=== PATIENT | female | born 1945 | race Caucasian/White ===

== ENCOUNTER 2021-08-09 11:46 | Emergency (ER) | payer OTHER, MEDICARE ==
[~2021-08-09] VITALS: Ht 149.9 cm; Wt 81.7 kg
[2021-08-09] MEDS ORDERED: HYDROCODONE-AC1 EA10 PO (12:05)
== END 2021-08-09 12:25 | disposition home or self-care (01) ==
LOC: ER 11:46
DX: S70.12XA Contusion of left thigh, initial encounter (principal); W22.8XXA Striking against or struck by other objects, initial encounter
CPT/HCPCS: 99283

== ENCOUNTER 2023-05-05 10:35 | Day surgery (SDC) | payer MEDICARE ==
[~2023-05-05] VITALS: Ht 149.9 cm; Wt 77.7 kg
[~2023-05-05 10:35] MED LIST: HYDROCODONE-AC1 EA10 PO
[2023-05-05] MEDS ORDERED: NADO20 (11:09)
[2023-05-05] MEDS ORDERED: METF500 (11:09)
[2023-05-05] MEDS ORDERED: Lovastatin20 MG (11:09)
[2023-05-05] MEDS ORDERED: ASPI81CH (11:10)
[2023-05-05 13:04] VITALS: BP 107/60
== END 2023-05-05 12:35 | disposition home or self-care (01) ==
LOC: ORSCSDS 10:35
PROVIDERS: Specialist
PROC: 0DJ08ZZ Inspection of Upper Intestinal Tract, Via Natural or Artificial Opening Endoscopic (ICD-10-PCS; principal; 2023-05-05 12:00)
DX: K74.60 Unspecified cirrhosis of liver (principal); K75.81 Nonalcoholic steatohepatitis (NASH); I85.00 Esophageal varices without bleeding; K76.6 Portal hypertension; K31.89 Other diseases of stomach and duodenum; I10 Essential (primary) hypertension; E78.5 Hyperlipidemia, unspecified; F32.A Depression, unspecified; E11.9 Type 2 diabetes mellitus without complications; E66.9 Obesity, unspecified; Z68.34 Body mass index [BMI] 34.0-34.9, adult; Z79.82 Long term (current) use of aspirin; Z79.899 Other long term (current) drug therapy
CPT/HCPCS: 82947; J2001; J2704; J7120

== ENCOUNTER → 2023-07-31 | Outpatient (CLI) | payer MEDICARE ==
[~2023-07-31] MED LIST changes: +ASPI81CH; +Lovastatin20 MG; +METF500; +NADO20
[2023-08-11 21:41] LABS: Alanine Aminotransfer (ALT/SGP 25 U/L (12-78); Albumin, Blood 3.5 g/dL (3.4-5.0); Albumin/Globulin Ratio 1.2 (0.8-1.8); Alk Phos 197 U/L (50-136); Anion Gap 8 mmol/L (6-16); Aspartate Aminotrans (AST/SGOT 24 U/L (12-37); Bilirubin, Total 0.4 mg/dL (0.1-1.0); Blood Urea Nitrogen 29 mg/dL (8-24); Bun/Creatinine Ratio 22.1 (12.0-20.0); CO2, Blood 24 mmol/L (21-32); Chloride, Blood 109 mmol/L (98-108); Creatinine, Blood 1.31 mg/dL (0.40-1.00); Globulin, Blood 2.9 g/dL (2.2-4.0); Glomerular Filtration Rate 41 (60-); Glucose, Blood 192 mg/dL (70-99); Phosphorus, Blood 3.6 mg/dL (2.5-4.9); Potassium, Blood 5.1 mmol/L (3.5-5.5); Sodium, Blood 141 mmol/L (136-145); Total Protein, Blood 6.4 g/dL (6.4-8.2)
== END ==
LOC: LAB SHORT 16:28 → LAB 16:28
PROVIDERS: Internal Medicine Hematology & Oncology
DX: D61.818 Other pancytopenia (principal)
CPT/HCPCS: 80053; 84100

== ENCOUNTER → 2023-08-14 | Outpatient (CLI) | payer MEDICARE ==
[2023-08-15 09:11] LABS: A/G RATIO 1.5 (1.2-2.2); ALKALINE PHOSPHATASE, S 223 IU/L (44-121); ALT (SGPT) 20 IU/L (0-32); AST (SGOT) 27 IU/L (0-40); BILIRUBIN, TOTAL 0.3 mg/dL (0.0-1.2); BUN 26 mg/dL (8-27); BUN/CREATININE RATIO 22 (12-28); CALCIUM, SERUM 8.9 mg/dL (8.7-10.3); CARBON DIOXIDE, TOTAL 24 mmol/L (20-29); CHLORIDE, SERUM 103 mmol/L (96-106); CREATININE, SERUM 1.19 mg/dL (0.57-1.00); GLOBULIN, TOTAL 2.4 g/dL (1.5-4.5); GLUCOSE, SERUM 307 mg/dL (70-99); PHOSPHORUS, SERUM 3.7 mg/dL (3.0-4.3); POTASSIUM, SERUM 4.9 mmol/L (3.5-5.2); SODIUM, SERUM 138 mmol/L (134-144)
== END | disposition home or self-care (01) ==
LOC: LAB 13:12 → LAB SHORT 13:12
PROVIDERS: Internal Medicine Hematology & Oncology
DX: D61.818 Other pancytopenia (principal); E53.8 Deficiency of other specified B group vitamins
CPT/HCPCS: 80053; 80069; 82607; 82746; 84100

== ENCOUNTER → 2024-05-16 | Outpatient (CLI) | payer MEDICARE ==
[~2024-05-16] MED LIST changes: +ONDA4ODT MM
[2024-05-16 19:01] LABS: BASOPHILS ABSOLUTE AUTO 0.02 K/mm3 (0.00-0.23); BASOPHILS PERCENT AUTO 1 % (0-2); EOSINOPHILS ABSOLUTE AUTO 0.09 K/mm3 (0.00-0.68); EOSINOPHILS PERCENT AUTO 4 % (0-6); Hematocrit 34.6 % (33.0-51.0); Hemoglobin 11.4 g/dL (11.5-16.0); IMMATURE GRAN ABSOLUTE AUTO 0.01 K/mm3 (0.00-0.10); IMMATURE GRAN PERCENT AUTO 0 % (0-1); LYMPHOCYTES ABSOLUTE AUTO 0.61 K/mm3 (0.84-5.20); LYMPHOCYTES PERCENT AUTO 25 % (21-46); MONOCYTES PERCENT AUTO 8 % (4-13); Mean Corpuscular HGB 31.2 pg (26.0-34.0); Mean Corpuscular HGB Conc 32.9 g/dL (31.5-36.5); Mean Corpuscular Volume 95 fL (80-100); Mean Platelet Volume 12.8 fL (9.1-12.4); NEUTROPHILS ABSOLUTE AUTO 1.55 K/mm3 (1.96-9.15); NEUTROPHILS PERCENT AUTO 63 % (41-73); Platelet Count 73 K/mm3 (150-400); RDW Coefficient Variation 13.2 % (11.7-14.2); RDW Standard Deviation 46.1 fL (35.1-46.3); Red Blood Cell Count 3.65 M/mm3 (3.80-5.20); White Blood Cell Count 2.48 K/mm3 (4.00-11.30)
[2024-05-16 21:04] LABS: Alanine Aminotransfer (ALT/SGP 23 U/L (12-78); Albumin, Blood 3.5 g/dL (3.4-5.0); Alk Phos 217 U/L (50-136); Anion Gap 10 mmol/L (3-11); Aspartate Aminotrans (AST/SGOT 29 U/L (12-37); Bilirubin, Total 0.6 mg/dL (0.1-1.0); Blood Urea Nitrogen 25 mg/dL (8-24); Bun/Creatinine Ratio 18.9 (12.0-20.0); CHOL/HDL RATIO 1.7; CO2, Blood 26 mmol/L (21-32); Calcium, Blood 9.2 mg/dL (8.5-10.1); Chloride, Blood 106 mmol/L (98-108); Cholesterol 107 mg/dL (50-200); Creatinine, Blood 1.32 mg/dL (0.40-1.00); Globulin, Blood 3.5 g/dL (2.2-4.0); Glomerular Filtration Rate 41 (60-); Glucose, Blood 120 mg/dL (70-99); HDL Cholesterol 62 mg/dL (>39); LDL/HDL RATIO 0.4; Low Density Lipoprotein Chol 25 mg/dL (0-110); Potassium, Blood 4.8 mmol/L (3.5-5.5); Sodium, Blood 137 mmol/L (136-145); Triglycerides 100 mg/dL (30-160); Very Low Density Lipoprot Chol 20 mg/dL (6-32)
== END ==
LOC: LAB SHORT 17:35 → LAB 17:35
PROVIDERS: Family Medicine
DX: E11.9 Type 2 diabetes mellitus without complications (principal); E78.2 Mixed hyperlipidemia; I50.32 Chronic diastolic (congestive) heart failure
CPT/HCPCS: 80053; 80061; 83036; 83880; 85025

== ENCOUNTER 2024-08-12 10:28 | Day surgery (SDC) | payer MEDICARE ==
[~2024-08-12] VITALS: Ht 149.9 cm; Wt 70.7 kg
[~2024-08-12 10:28] MED LIST changes: +Aspir 8181 MG PO; +Carvedilol3.125 MG PO; +ESCI10 PO; +GLUCOPHAGE1000 M1 PO; +ISOSORBIDE MONO30 MG PO; +Lactated Ringer's 1,000 ML IV ONE; +Lidocaine HCl 4% 5 ML SDA ONE; +Lisinopril2.5 MG PO; +PRILOSEC PO; +Preservision S1 EACH PO; +ROSUVASTATIN CA20 MG PO; +VITAMIN B12; +VITAMIN D31000 UNI1 PO
[2024-08-12] MEDS ORDERED: propofoL 50 ML IV ONE (11:39)
[2024-08-12] MEDS ORDERED: Lactated Ringer's 1,000 ML IV ONE (11:50)
[2024-08-12 14:02] VITALS: BP 126/60
== END 2024-08-12 13:35 | disposition home or self-care (01) ==
LOC: ORSCSDS 10:28
PROVIDERS: Internal Medicine Gastroenterology
PROC: 0DBM8ZX Excision of Descending Colon, Via Natural or Artificial Opening Endoscopic, Diagnostic (ICD-10-PCS; principal; 2024-08-12 11:45)
PROC: 0DB98ZX Excision of Duodenum, Via Natural or Artificial Opening Endoscopic, Diagnostic (ICD-10-PCS; principal; 2024-08-12 11:45)
PROC: 0DBL8ZX Excision of Transverse Colon, Via Natural or Artificial Opening Endoscopic, Diagnostic (ICD-10-PCS; principal; 2024-08-12 11:45)
PROC: 0DB68ZX Excision of Stomach, Via Natural or Artificial Opening Endoscopic, Diagnostic (ICD-10-PCS; principal; 2024-08-12 11:45)
DX: D50.9 Iron deficiency anemia, unspecified (principal); K31.7 Polyp of stomach and duodenum; K76.6 Portal hypertension; K31.89 Other diseases of stomach and duodenum; I85.00 Esophageal varices without bleeding; D12.3 Benign neoplasm of transverse colon; D12.4 Benign neoplasm of descending colon; K57.30 Diverticulosis of large intestine without perforation or abscess without bleeding; K64.4 Residual hemorrhoidal skin tags; K64.8 Other hemorrhoids; Z86.0101 Personal history of adenomatous and serrated colon polyps; K74.60 Unspecified cirrhosis of liver; I12.9 Hypertensive chronic kidney disease with stage 1 through stage 4 chronic kidney disease, or unspecified chronic kidney disease; E11.22 Type 2 diabetes mellitus with diabetic chronic kidney disease; N18.9 Chronic kidney disease, unspecified; G47.33 Obstructive sleep apnea (adult) (pediatric); F32.A Depression, unspecified; K21.9 Gastro-esophageal reflux disease without esophagitis; D69.59 Other secondary thrombocytopenia; E66.9 Obesity, unspecified; Z68.31 Body mass index [BMI] 31.0-31.9, adult; Z79.82 Long term (current) use of aspirin; Z79.84 Long term (current) use of oral hypoglycemic drugs; Z79.899 Other long term (current) drug therapy
CPT/HCPCS: 82947; 88305; 88342; J2003; J2704; J7120

== ENCOUNTER → 2024-11-09 | Outpatient (CLI) | payer MEDICARE ==
[~2024-11-09] MED LIST changes: -Lactated Ringer's 1,000 ML IV ONE; -Lidocaine HCl 4% 5 ML SDA ONE
[2024-11-09 16:06] LABS: BASOPHILS ABSOLUTE AUTO 0.01 K/mm3 (0.00-0.23); BASOPHILS PERCENT AUTO 0 % (0-2); EOSINOPHILS PERCENT AUTO 4 % (0-6); Hematocrit 31.1 % (33.0-51.0); IMMATURE GRAN PERCENT AUTO 0 % (0-1); LYMPHOCYTES ABSOLUTE AUTO 0.68 K/mm3 (0.84-5.20); LYMPHOCYTES PERCENT AUTO 27 % (21-46); MONOCYTES ABSOLUTE AUTO 0.19 K/mm3 (0.16-1.47); MONOCYTES PERCENT AUTO 7 % (4-13); Mean Corpuscular HGB 30.5 pg (26.0-34.0); Mean Corpuscular HGB Conc 32.2 g/dL (31.5-36.5); Mean Corpuscular Volume 95 fL (80-100); Mean Platelet Volume 12.4 fL (9.1-12.4); NEUTROPHILS ABSOLUTE AUTO 1.58 K/mm3 (1.96-9.15); NEUTROPHILS PERCENT AUTO 62 % (41-73); Platelet Count 93 K/mm3 (150-400); RDW Coefficient Variation 14.2 % (11.7-14.2); RDW Standard Deviation 49.3 fL (35.1-46.3); Red Blood Cell Count 3.28 M/mm3 (3.80-5.20); White Blood Cell Count 2.56 K/mm3 (4.00-11.30)
== END ==
LOC: LAB SHORT 13:49 → LAB 13:49
PROVIDERS: Internal Medicine Hematology & Oncology
DX: E61.1 Iron deficiency (principal)
CPT/HCPCS: 85025

== ENCOUNTER 2024-11-23 12:21 | Emergency (ER) | payer MEDICARE ==
[~2024-11-23] VITALS: Ht 149.9 cm; Wt 72.6 kg
[2024-11-23 12:58] VITALS: BP 128/62
[2024-11-23 14:16] LABS: BASOPHILS ABSOLUTE AUTO 0.02 K/mm3 (0.00-0.23); BASOPHILS PERCENT AUTO 1 % (0-2); EOSINOPHILS ABSOLUTE AUTO 0.12 K/mm3 (0.00-0.68); EOSINOPHILS PERCENT AUTO 4 % (0-6); Hematocrit 30.1 % (33.0-51.0); Hemoglobin 9.8 g/dL (11.5-16.0); IMMATURE GRAN PERCENT AUTO 0 % (0-1); LYMPHOCYTES ABSOLUTE AUTO 0.88 K/mm3 (0.84-5.20); LYMPHOCYTES PERCENT AUTO 30 % (21-46); MONOCYTES ABSOLUTE AUTO 0.26 K/mm3 (0.16-1.47); MONOCYTES PERCENT AUTO 9 % (4-13); Mean Corpuscular HGB 30.5 pg (26.0-34.0); Mean Corpuscular HGB Conc 32.6 g/dL (31.5-36.5); Mean Corpuscular Volume 94 fL (80-100); Mean Platelet Volume 12.2 fL (9.1-12.4); NEUTROPHILS ABSOLUTE AUTO 1.62 K/mm3 (1.96-9.15); NEUTROPHILS PERCENT AUTO 56 % (41-73); Platelet Count 70 K/mm3 (150-400); RDW Coefficient Variation 14.3 % (11.7-14.2); RDW Standard Deviation 49.5 fL (35.1-46.3); Red Blood Cell Count 3.21 M/mm3 (3.80-5.20)
[2024-11-23 14:45] LABS: Ethanol (Alcohol), Blood, Med <3 mg/dL; Salicylate <1.7 mg/dL (2.8-20.0)
[2024-11-23 15:19] LABS: Acetaminophen, Random <2.0 ug/mL (10.0-30.0); Alanine Aminotransfer (ALT/SGP 26 U/L (12-78); Albumin, Blood 3.3 g/dL (3.4-5.0); Albumin/Globulin Ratio 0.9 (0.8-1.8); Alk Phos 241 U/L (50-136); Anion Gap 12 mmol/L (3-11); Aspartate Aminotrans (AST/SGOT 34 U/L (12-37); Bilirubin, Total 0.3 mg/dL (0.1-1.0); Blood Urea Nitrogen 34 mg/dL (8-24); Bun/Creatinine Ratio 23.6 (12.0-20.0); CO2, Blood 23 mmol/L (21-32); Calcium, Blood 9.1 mg/dL (8.5-10.1); Chloride, Blood 110 mmol/L (98-108); Creatinine, Blood 1.44 mg/dL (0.40-1.00); Globulin, Blood 3.5 g/dL (2.2-4.0); Glomerular Filtration Rate 37 (60-); Glucose, Blood 109 mg/dL (70-99); Potassium, Blood 4.9 mmol/L (3.5-5.5); Sodium, Blood 140 mmol/L (136-145); Total Protein, Blood 6.8 g/dL (6.4-8.2)
== END 2024-11-23 16:34 | disposition home or self-care (01) ==
LOC: ER 12:21
PROVIDERS: Student in an Organized Health Care Education/Training Program
DX: R45.851 Suicidal ideations (principal); E11.9 Type 2 diabetes mellitus without complications; Z79.82 Long term (current) use of aspirin; Z79.84 Long term (current) use of oral hypoglycemic drugs; Z79.899 Other long term (current) drug therapy; Z88.0 Allergy status to penicillin; Z88.8 Allergy status to other drugs, medicaments and biological substances
CPT/HCPCS: 80053; 80320; 85025; 99285; G0480

== ENCOUNTER → 2025-05-30 | Outpatient (CLI) | payer MEDICARE | LOC: LAB 14:59 | DX: E78.2 Mixed hyperlipidemia (principal); D63.8 Anemia in other chronic diseases classified elsewhere; I12.9 Hypertensive chronic kidney disease with stage 1 through stage 4 chronic kidney disease, or unspecified chronic kidney disease; N18.9 Chronic kidney disease, unspecified ==

== ENCOUNTER → 2025-06-05 | Outpatient (CLI) | payer MEDICARE ==
[2025-06-06 10:29] LABS: Campylobacter Sp Not Detected (NOT DETECT); E. Coli O157 Not Detected (NOT DETECT); Enteroaggregative E. coli-EAEC Not Detected (NOT DETECT); Enteropathogenic E. coli-EPEC Not Detected (NOT DETECT); Enterotoxigenic E. coli-ETEC Not Detected (NOT DETECT); Salmonella Sp Not Detected (NOT DETECT); Shiga Toxin-prod E. coli-STEC Not Detected (NOT DETECT); Shigella/Enteroin E. coli-EIEC Not Detected (NOT DETECT); Vibrio Sp Not Detected (NOT DETECT)
== END ==
LOC: LAB SHORT 09:00 → LAB 09:00
PROVIDERS: Physician Assistant Medical
DX: R19.7 Diarrhea, unspecified (principal)
CPT/HCPCS: 87507